=== PATIENT | male | born 1940 | race Caucasian/White ===

== ENCOUNTER → 2020-02-07 | Outpatient (CLI) | payer MEDICARE, BC ==
[~2020-02-07] MED LIST: BUPIVACAINE MPF 0.5% 10 ML VIAL for KCIC. IM ONE; IOHEXOL 300 MG/ML 50 ML VIAL. INT ART ONE; LIDOCAINE 1% Multi-Dose 20 ML VIAL. ID ONE; methylPREDNISolone ACETATE 40 MG/ML VIAL. INT ART ONE
--- NOTE | 2020-02-07 14:26 | KCIC ---
PROCEDURE Therapeutic right hip injection using fluoroscopic guidance. HISTORY Hip pain. TECHNIQUE The procedure was explained to the patient as were potential risks, including infection, bleeding or allergic reaction. All questions were answered. Informed written and verbal consent was obtained. The hip was prepped and draped in the usual sterile manner. Following administration of local anesthetic, a 22-gauge spinal needle was advanced into the hip joint without difficulty, with care taken to avoid the vascular structures. Stylet was removed and following negative aspiration, a mixture of 4 cc Omnipaque-300, 2 cc (80 mg) Depo-Medrol, 4 cc bupivacaine and 4 cc 1% lidocaine were injected without difficulty. Fluoroscopy demonstrates uniform and satisfactory distribution of the injection through the hip. The needle was removed. There was good hemostasis at the injection site. The patient left in stable condition without immediate complication. Patient was advised as to potential postprocedural complications and advised to contact their physician or the emergency room in such event. A single spot image was obtained. FLUOROSCOPY TIME: 20 seconds Electronically signed by: Reginald Matute MD (02/07/2020 2:23 PM) [id number]
== END ==
LOC: KCIC 10:00
PROVIDERS: ATTEND Orthopaedic Surgery
DX: M25.551 Pain in right hip (principal)
CPT/HCPCS: 20610; 77002; J1030; J3490; Q9967

== ENCOUNTER → 2020-07-29 | Outpatient (CLI) | payer MEDICARE, BC ==
--- NOTE | 2020-07-29 09:33 | KCIC ---
EXAM: Lumbar spine MRI without contrast. HISTORY: Lumbar radiculopathy. TECHNIQUE: Multiplanar, multisequence magnetic resonance imaging of the lumbar spine was performed without contrast. COMPARISON: None. FINDINGS: There is mild lumbar scoliosis and hyperlordosis. There is grade 1 anterolisthesis of L5 on S1, measuring 4 mm. There is disc desiccation at L2-L3, L3-L4 and L4-L5. There is multilevel endplate remodeling. There are few endplate Schmorl's nodes, really along the anterior inferior endplate of L2. There is no fracture or suspicious osseous lesion. The conus terminates at T12-L1. At L1-L2, there is a disc bulge and annular tear. There is mild bilateral facet arthropathy. There is mild left foraminal stenosis. At L2-L3, there is a disc bulge and anterior predominant endplate osteophytosis. There is mild lateral facet arthropathy. There is mild left foraminal stenosis. There is mild central canal stenosis. At L3-L4, there is a broad-based right foraminal to extra foraminal disc protrusion and annular tear superimposed on a disc bulge and endplate osteophytosis. There is mild/moderate bilateral facet arthropathy. There is mild bilateral foraminal stenosis with abutment of the exiting right L3 nerve root. There is mild central canal stenosis. At L4-L5, there is a disc bulge with left foraminal annular tear and broad-based left extraforaminal to lateral disc protrusion and osteophyte complex. There is mild bilateral facet arthropathy. There is no stenosis. At L5-S1, there is left lateral predominant endplate osteophytosis. There is severe left facet arthropathy. There is mild left foraminal stenosis with abutment of the exiting left L5 nerve root. IMPRESSION: 1. Multilevel degenerative change involving the lumbar spine, described in detail above. This is associated with mild left foraminal stenosis at L1-L2, mild left foraminal and central canal stenosis at L2-L3, mild bilateral foraminal stenosis with abutment the exiting right L3 nerve root and mild central canal stenosis at L3-L4, and mild left foraminal stenosis with abutment of the exiting left L5 nerve root at L5-S1. 2. Mild lumbar scoliosis and hyperlordosis. Electronically signed by: Trisha Harvey MD (07/29/2020 9:30 AM) [facility]
== END ==
LOC: KCIC MRI 08:37
PROVIDERS: ATTEND Family Medicine
DX: M47.816 Spondylosis without myelopathy or radiculopathy, lumbar region (principal); M43.17 Spondylolisthesis, lumbosacral region; M51.46 Schmorl's nodes, lumbar region; M25.78 Osteophyte, vertebrae
CPT/HCPCS: 72148

== ENCOUNTER → 2020-08-19 | Outpatient (CLI) | payer MEDICARE, BC ==
[~2020-08-19] MED LIST changes: +AMIO200T6 PO; +APIX5TAB PO; +ASPI-630 PO; -BUPIVACAINE MPF 0.5% 10 ML VIAL for KCIC. IM ONE; +EZET10TA20 PO; +FELO10TA4 PO; +HYDR-2145 PO; -IOHEXOL 300 MG/ML 50 ML VIAL. INT ART ONE; -LIDOCAINE 1% Multi-Dose 20 ML VIAL. ID ONE; +LIPITOR80 MG PO; +TAMS0.4C97 PO; -methylPREDNISolone ACETATE 40 MG/ML VIAL. INT ART ONE
--- NOTE | 2020-08-19 12:46 | PDOC1 ---
INITIAL PAIN CONSULT DATE OF SERVICE: DOS: DATE: 08/19/20 TIME: 12:40 CHIEF COMPLAINT: Chief Complaint: Low back and right lower extremity pain HISTORY OF PRESENT ILLNESS: 80-year-old male presents history of pain low back low right lower extremity for about a year not the result of any specific injury or accident he is aware of his been increasing gradually in the low back and the right leg primarily into the right anterior thigh anteromedial thigh medial lower leg as well as anterior lower leg to the ankle. Patient reports his leg tires easily is much more fatigued on the right than the left with walking and standing. Patient describes as better with sitting or laying down but prolonged standing is exacerbating the pain significantly patient ports does not awaken her from sleep at night is not effective bowel bladder control does affect his ability to walk to some extent if he is up on his feet long enough. Patient reports pain is constant in the low back radiating into the right lower extremity with numbness tingling intermittent intensity and aching pain in the leg and the back itself patient rates his disability rating 0-10 10 being the worst is an 8 with him home was possibilities 7 with recreation social activity sexual behavior and self-care and 8 with occupational activities. Patient not had a recent physical therapies chiropractic treatments or other treatments although has had some in the past and is doing some stretching daily. Patient have MRI scan lumbar spine x-ray multilevel degenerative change with left foraminal stenosis at L1 to and L3-4 shows broad-based right foraminal extraforaminal disc protrusion and annular tear superimposed on disc bulge and endplate osteophytosis, with mild bilateral foraminal stenosis with abutment of the exiting right L3 nerve root. Patient reports no motor loss no bowel or bladder incontinence PAST MEDICAL HISTORY: PMH: Hypertension, hyperlipidemia, coronary artery disease, arthritis, benign prostatic hypertrophy PREVIOUS SURGERIES: Past Surgical Hx: Coronary artery stents, bilateral foot partial amputations CURRENT MEDICATIONS: Current Meds: Active Scripts Medications Dose Route/Sig Max Daily Dose Days Date Category Lipitor (Atorvastatin Calcium) 80 Mg Tablet 1 Tab PO DAILY 08/19/20 Reported Flomax (Tamsulosin Hcl) 0.4 Mg Cap.er.24h 1 Cap PO DAILY 08/19/20 Reported Felodipine Er (Felodipine) 10 Mg Tab.er.24h 1 Tab PO DAILY 08/19/20 Reported Amiodarone Hcl 200 Mg Tablet 1 Tab PO DAILY 08/19/20 Reported Hydrochlorothiazide Tablet (Hydrochlorothiazide) 25 Mg Tablet 25 Mg PO DAILY 08/19/20 Reported Zetia (Ezetimibe) 10 Mg Tablet 1 Tab PO DAILY 30 08/19/20 Reported Aspirin 81 Mg Tab.chew 1 Tab PO DAILY 08/19/20 Reported Eliquis (Apixaban) 5 Mg Tablet 5 Mg PO DAILY 08/19/20 Reported ALLERGIES; Allergies: Coded Allergies: Penicillins (Verified Allergy, Unknown, 02/07/20) FAMILY HISTORY: Family Hx: Cancers SOCIAL HISTORY: Social Hx: Patient is under alcohol does not smoke not use any illegal illicit recreational drugs is lives with his spouse no children living in the home lives locally in [facility] 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 REVIEW OF SYSTEMS: ROS: Positive for those items mentioned in history of present illness, all systems are reviewed, otherwise negative, is complete full and well-documented on patient's chart PHYSICAL EXAM: VS: Blood pressure is 135/73 pulse 70 respirations 16 temperature 97.9 F height is 6 foot 1 inch weight is 242 pounds PE: PHYSICAL EXAMINATION: GENERAL: The patient is awake, alert, oriented, appropriate, very pleasant demeanor HEENT: Shows normocephalic, atraumatic. Extraocular movements are intact and symmetrical. Oral cavity: Mucous membranes moist and pink. NECK: Shows anterior throat supple without palpable lymphadenopathy noted. Swallow reflex symmetrical. CHEST: Shows normal on inspection. Breath sounds are clear bilaterally, distant but no rales rhonchi or wheezes auscultated. HEART: Shows S1, S2 clear. No murmurs auscultated. ABDOMEN: Soft, nontender, nondistended, obese. No palpable organomegaly is noted. No rebound or guarding demonstrated. BACK: Shows spine grossly in the midline. Normal-appearing cervical lordotic curvature. There is slightly increased thoracic kyphosis, some minor flattening of the lumbar lordotic curvature. Lumbar paraspinous muscles show symmetrical on inspection, on palpation shows some moderate tenderness diffusely throughout the upper, middle and lower distribution of the paraspinous muscles bilaterally and also into the lower thoracic paraspinous musculature, firm and tender, without specific trigger points, without radiation of pain. The patient has good rotational motion of the lumbar spine, both laterally as well as extension and flexion without significant difficulty. No tenderness over the spinous processes, sacrum or sacroiliac regions. EXTREMITIES: Lower extremities show deep tendon reflexes 2+ in the patellar and tendo calcaneus tendons. Motor exam is 4 on a scale of 5 with right dorsiflexion, extension, quadriceps and hamstring flexion and 5/5 on the left. Peripheral pulses are 1+ posterior tibial. No peripheral edema is noted bilaterally. Lower extremities are warm and dry to touch, equal in color and appearance. Straight leg raise noted to be negative bilaterally. Gaenslen's and Flex's maneuvers are negative bilaterally as well. The patient is able to stand, stand on his toes, walks with a normal-appearing gait does not appear to favor the right or left lower extremity significantly for short distance the office today is not using any assistive devices to ambulate.. SKIN: Shows warm and dry, good turgor. No edema. No sores, rashes or bruising throughout. IMPRESSION: Impression: 80-year-old male with 1 year history right lower extremity pain and radicular fashion MRI scan lumbar spine as noted Hypertension Arthritis Hyperlipidemia Anticoagulation therapy Plan: Options were discussed with the patient including conservative medical management, physical therapies, and interventional techniques. Patient would like to pursue interventional techniques. We will check with patient's attic blower to clear his holding of Eliquis for 2 days prior to lumbar epidural steroid injection. If deemed safe and appropriate will have him hold this and return for procedure at that time. SHANAE ENGLAND MD Aug 19, 2020 12:46
== END | disposition home or self-care (01) ==
LOC: PNCL 08:28
PROVIDERS: ATTEND Anesthesiology
DX: M54.5 Low back pain (principal); M79.604 Pain in right leg; I10 Essential (primary) hypertension; I25.10 Atherosclerotic heart disease of native coronary artery without angina pectoris; E78.5 Hyperlipidemia, unspecified; N40.0 Benign prostatic hyperplasia without lower urinary tract symptoms; M19.90 Unspecified osteoarthritis, unspecified site; Z79.82 Long term (current) use of aspirin; Z79.899 Other long term (current) drug therapy; Z88.0 Allergy status to penicillin; Z98.890 Other specified postprocedural states
CPT/HCPCS: 62323; 99214; G0463

== ENCOUNTER → 2020-10-01 | Outpatient (CLI) | payer MEDICARE, BC ==
[~2020-10-01] MED LIST changes: +IOHEXOL 180 MG/ML 10 ML VIAL. ONE; +methylPREDNISolone ACETATE 40 MG/ML VIAL. ONE; +methylPREDNISolone ACETATE 80 MG/ML VIAL. ONE
--- NOTE | 2020-10-01 09:56 | PDOC ---
Progress Note - Pain Clinic Date of Service: DOS: DATE: 10/01/20 TIME: 09:54 Diagnosis: Dx: Lumbar radiculopathy with lumbar degenerative disease lumbar spinal stenosis History or Present Illness: HPI: 80-year-old male returns follow-up status post initial evaluation and p reauthorization to hold his Eliquis which has been off now for about 4 days. Patient reports still significant pain in the low back and the right lower extremity as it was previously posterior gluteus posterior lateral thigh anterior thigh medial thigh and groin as well as medial knee patient reports is an 8 on scale 10 at its worst average and least is an 8 today. Patient descri bes aching and dull shooting and radiating at times worse with walking. Patient reports better with sitting or laying down generally does not awaken him from sleep at night. 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 Patient reports no new motor or sensory deficits no new bowel or bladder incontinence or other complaints. Physical Exam: VS: Blood pressure is 139/90 pulse 64 respiration 16 temperature 98.2 F weight is 242 pounds PE: PHYSICAL EXAMINATION: GENERAL: The patient is awake, alert, oriented, appropriate, very pleasant demeanor HEENT: Shows normocephalic, atraumatic. Extraocular movements are intact and symmetrical. Oral cavity: Mucous membranes moist and pink. NECK: Shows anterior throat supple without palpable lymphadenopathy noted. Swallow reflex symmetrical. CHEST: Shows normal on inspection. Breath sounds are clear bilaterally. HEART: Shows S1, S2 clear. No murmurs auscultated. ABDOMEN: Soft, nontender, nondistended, obese. No palpable organomegaly is noted. BACK: Shows spine grossly in the midline. Normal-appearing cervical lordotic curvature. There is slightly increased thoracic kyphosis, some minor flattening of the lumbar lordotic curvature. Lumbar paraspinous muscles show symmetrical on inspection, on palpation shows some moderate tenderness diffusely throughout the upper, middle and lower distribution of the paraspinous muscles, but without specific trigger points, without radiation of pain. The patient has good rotational motion of the lumbar spine, both laterally as well as extension and flexion without significant difficulty. No tenderness over the spinous processes, sacrum or sacroiliac regions. EXTREMITIES: Lower extremities show deep tendon reflexes 2+ in the patellar and tendo calcaneus tendons. Motor exam is 4 on a scale of 5 with right dorsiflexion, extension, quadriceps and hamstring flexion and 5/5 on the left. Peripheral pulses are 1+ posterior tibial. No peripheral edema is noted bilaterally. Lower extremities are warm and dry to touch, equal in color and appearance. SKIN: Shows warm and dry, good turgor. No edema. No sores, rashes or bruising throughout. Procedure: Procedure: Options discussed with the patient. Patient's old chart reviewed his his current medication regimen updated current review of systems updated today as well. We will proceed with a lumbar epidural steroid injection today with fluoroscopic guidance. Risks were discussed including but not limited to: Bleeding, infection, possibility of epidural hematoma and subsequent neurological compromise, dural puncture, headaches, spinal cord and/or nerve damage, side effects of steroid medication, and poor results regarding pain control. Patient understands and wished to proceed. Patient will return to clinic in approximate 2 weeks for follow-up, was counseled as return appointment, activity level, and side effects to be aware of. Medication Injected: Med Injected: Procedure is lumbar epidural steroid injection under local anesthetic using sterile prep and drape at the L3-4 level using C-arm fluoroscopic guidance in both AP and lateral views medications injected is 120 mg Depo-Medrol + 10 mL preservative-free normal saline and 2 mL contrast- condition at discharge is stable patient tolerated procedure well had no complications. Condition at Discharge: Condition at Discharge: Condition at discharge stable, patient tolerated procedure well and had no complications. SHANAE ENGLAND MD Oct 01, 2020 09:56
--- NOTE | 2020-10-01 09:57 | PDOC4 ---
PROCEDURE Procedure Patient was consented for lumbar epidural steroid injection. Risks were dis cussed including but not limited to: Bleeding, infection, possibility of epidural hematoma and subsequent neurological compromise, dural puncture, headaches, spinal cord and/or nerve damage, side effects of steroid medication, and poor results regarding pain control. Patient understands and wished to proceed. Procedure is lumbar epidural steroid injection under local anesthetic using sterile prep and drape at the L3-4 level using C-arm fluoroscopic guidance in both AP and lateral views medications injected is 120 mg Depo-Medrol + 10 mL preservative-free normal saline and 2 mL contrast- condition at discharge is stable patient tolerated procedure well had no complications. SHANAE ENGLAND MD Oct 01, 2020 09:57
== END | disposition home or self-care (01) ==
LOC: PNCL 08:31
PROVIDERS: ATTEND Anesthesiology
DX: M51.16 Intervertebral disc disorders with radiculopathy, lumbar region (principal); M48.061 Spinal stenosis, lumbar region without neurogenic claudication; Z88.0 Allergy status to penicillin; Z98.890 Other specified postprocedural states
CPT/HCPCS: 62323; J1030; J1040; Q9965

== ENCOUNTER → 2020-10-22 | Outpatient (CLI) | payer MEDICARE, BC ==
--- NOTE | 2020-10-22 09:44 | PDOC ---
Progress Note - Pain Clinic Date of Service: DOS: DATE: 10/22/20 TIME: 09:41 Diagnosis: Dx: Lumbar radiculopathy with lumbar degenerative disease and lumbar spinal stenosis History or Present Illness: HPI: 80-year-old male returns for follow-up status post lumbar epidural steroid x1. Patient reports about 70% improvement after the first injection for a few days when the pain began to return after several days with pain in the right lower extremity as well as the low back and hip patient reports is an 8 on scale 10 is worse over the past week 7 on average 7 its least is a 7 today. Patient reports is on and off in intensity stabbing shooting in the right leg mostly in the lateral thigh anterior thigh medial thigh medial lower leg and knee on the right side patient ports is worse with walking standing better with sitting or laying down does not awaken him from sleep at night. Patient reports no new motor or sensory deficits no new bowel or bladder incontinence or other complaints at this time. Physical Exam: VS: Blood pressure is 151/80 pulse 60 respirations 18 temperature 97.8 F height is 6 foot 1 his weight is 240 pounds PE: PHYSICAL EXAMINATION: GENERAL: The patient is awake, alert, oriented, appropriate, very pleasant demeanor HEENT: Shows normocephalic, atraumatic. Extraocular movements are intact and symmetrical. Oral cavity: Mucous membranes moist and pink. NECK: Shows anterior throat supple without palpable lymphadenopathy noted. Swallow reflex symmetrical. CHEST: Shows normal on inspection. Breath sounds are clear bilaterally. HEART: Shows S1, S2 clear. No murmurs auscultated. ABDOMEN: Soft, nontender, nondistended, obese. No palpable organomegaly is noted. BACK: Shows spine grossly in the midline. Normal-appearing cervical lordotic curvature. There is slightly increased thoracic kyphosis, some minor flattening of the lumbar lordotic curvature. Lumbar paraspinous muscles show symmetrical on inspection, on palpation shows some moderate tenderness diffusely throughout the upper, middle and lower distribution of the paraspinous muscles without specific trigger points, without radiation of pain. The patient has good rotational motion of the lumbar spine, both laterally as well as extension and flexion without significant difficulty. EXTREMITIES: Lower extremities show deep tendon reflexes 2+ in the patellar and tendo calcaneus tendons. Motor exam is 4 on a scale of 5 with right dorsiflexion, extension, quadriceps and hamstring flexion and 5/5 on the left. Peripheral pulses are 1+ posterior tibial. No peripheral edema is noted bilaterally. Lower extremities are warm and dry to touch, equal in color and appearance. SKIN: Shows warm and dry, good turgor. No edema. No sores, rashes or bruising throughout. Procedure: Procedure: Options were discussed with the patient. Patient chart reviewed his current medication regimen updated current review of systems updated today as well. We will proceed with a second in the series lumbar epidural steroid ejections today with fluoroscopic guidance. Risks were discussed including but not limited to: Bleeding, infection, possibility of epidural hematoma and subsequent neurological compromise, dural puncture, headaches, spinal cord and/or nerve damage, side effects of steroid medication, and poor results regarding pain control. Patient understands and wished to proceed. Patient return to clinic in approximate 2 weeks for follow-up, was counseled as return appointment activity level and side effects of aware of. Medication Injected: Med Injected: Procedure is lumbar epidural steroid injection under local anesthetic using sterile prep and drape at the L3-4 level using C-arm fluoroscopic guidance in both AP and lateral views medications injected is 120 mg Depo-Medrol + 10 mL preservative-free normal saline and 2 mL contrast- condition at discharge is stable patient tolerated procedure well had no complications. Condition at Discharge: Condition at Discharge: Condition at discharge stable, patient alert procedure well had no complications. SHANAE ENGLAND MD Oct 22, 2020 09:44
== END | disposition home or self-care (01) ==
LOC: PNCL 08:25
PROVIDERS: ATTEND Anesthesiology
DX: M51.16 Intervertebral disc disorders with radiculopathy, lumbar region (principal); M48.061 Spinal stenosis, lumbar region without neurogenic claudication; Z79.82 Long term (current) use of aspirin; Z79.899 Other long term (current) drug therapy; Z88.0 Allergy status to penicillin
CPT/HCPCS: 62323; J1030; J1040; Q9965

== ENCOUNTER → 2020-12-11 | Outpatient (CLI) | payer MEDICARE, BC ==
--- NOTE | 2020-12-11 08:59 | PDOC ---
Progress Note - Pain Clinic Date of Service: DOS: DATE: 12/11/20 TIME: 08:56 Diagnosis: Dx: Lumbar radiculopathy with lumbar degenerative disease lumbar spinal stenosis History or Present Illness: HPI: 80-year-old male returns follow-up status post lumbar epidurals or injections x2. Patient reports about 80% improvement after the last injection in his low back and right lower extremity still with some pain in the leg returning after about 3 weeks patient reports the pain is worse with walking standing changing positions better with sitting or laying down generally does not awaken her from sleep at night patient reports no new motor or sensory deficits no new bowel or bladder incontinence reports the pain is aching in the low back and the right lower extremity posterior gluteus lateral thigh anterior thigh medial thighs some in the groin as well as the anterior thigh medial knee patient reports is a n 8 on scale 10 at all times over the past week worst least and average and is an 8 today. Patient reports no new motor or sensory deficits no new bowel or bladder incontinence. Physical Exam: VS: Blood pressure is 137/85 pulse 78 respirations are 18 temperature is 98.1 F height is 6 foot 1 his weight is 237 pounds PE: PHYSICAL EXAMINATION: GENERAL: The patient is awake, alert, oriented, appropriate, very pleasant demeanor HEENT: Shows normocephalic, atraumatic. Extraocular movements are intact and symmetrical. NECK: Shows anterior throat supple without palpable lymphadenopathy noted. Swallow reflex symmetrical. CHEST: Shows normal on inspection. Breath sounds are clear bilaterally. HEART: Shows S1, S2 clear. No murmurs auscultated. ABDOMEN: Soft, nontender, nondistended, obese. No palpable organomegaly is noted. No rebound or guarding demonstrated. BACK: Shows spine grossly in the midline. Normal-appearing cervical lordotic curvature. There is slightly increased thoracic kyphosis, some minor flattening of the lumbar lordotic curvature. Lumbar paraspinous muscles show symmetrical on inspection, on palpation shows some moderate tenderness diffusely throughout the upper, middle and lower distribution of the paraspinous muscles but without specific trigger points, without radiation of pain. The patient has good rotational motion of the lumbar spine, both laterally as well as extension and flexion without significant difficulty. EXTREMITIES: Lower extremities deep tendon reflexes are 2+ in the patellar and tendo calcaneus tendons. Motor exam is 4 on a scale of 5 with right dorsiflexion, extension, quadriceps and hamstring flexion and 5/5 on the left. Peripheral pulses are 1+ posterior tibial. No peripheral edema is noted bilaterally. Lower extremities are warm and dry to touch, equal in color and appearance. SKIN: Shows warm and dry, good turgor. No edema. No sores, rashes or bruising throughout. Procedure: Procedure: Options were discussed with the patient. Patient's old chart was reviewed his his current medication regimen updated current review of systems updated today as well. We will proceed with a third in the series lumbar epidural steroid action stable fluoroscopic guidance. Risks discussed including but not limited to bleeding infection possibility of epidural hematoma subsequent neurological compromise dural puncture headache spinal cord and nerve damage side effects of steroid medication and portal scarring pain control. Patient understands wished to proceed. Patient return to clinic in approximate 2 weeks for follow-up, was counseled as return appointment activity level and side effects to be aware of. Medication Injected: Med Injected: Procedure is lumbar epidural steroid injection under local anesthetic using sterile prep and drape at the L3-4 level using C-arm fluoroscopic guidance in both AP and lateral views medications injected is 120 mg Depo-Medrol + 10 mL preservative-free normal saline and 2 mL contrast- condition at discharge is stable patient tolerated procedure well had no complications. Condition at Discharge: Condition at Discharge: Condition at discharge stable, patient tolerated the procedure well and had no complications. SHANAE ENGLAND MD Dec 11, 2020 08:59
--- NOTE | 2020-12-11 09:00 | PDOC4 ---
PROCEDURE Procedure Patient was consented for lumbar epidural steroid injection. Risks were dis cussed including but not limited to: Bleeding, infection, possibility of epidural hematoma and subsequent neurological compromise, dural puncture, headaches, spinal cord and/or nerve damage, side effects of steroid medication, and poor results regarding pain control. Patient understands and wished to proceed. Procedure is lumbar epidural steroid injection under local anesthetic using sterile prep and drape at the L3\-4 level using C-arm fluoroscopic guidance in both AP and lateral views medications injected is 120 mg Depo-Medrol + 10 mL preservative-free normal saline and 2 mL contrast- condition at discharge is stable patient tolerated procedure well had no complications. SHANAE ENGLAND MD Dec 11, 2020 09:00
== END | disposition home or self-care (01) ==
LOC: PNCL 08:14
PROVIDERS: ATTEND Anesthesiology
DX: M51.16 Intervertebral disc disorders with radiculopathy, lumbar region (principal); M48.061 Spinal stenosis, lumbar region without neurogenic claudication; Z79.82 Long term (current) use of aspirin; Z79.899 Other long term (current) drug therapy; Z88.0 Allergy status to penicillin
CPT/HCPCS: 62323; J1030; J1040; Q9965